=== PATIENT | male | born 1960 | race Caucasian/White ===

== ENCOUNTER → 2018-12-14 | Outpatient (CLI) | payer BC ==
--- NOTE | 2018-12-14 16:35 | Diagnostic Imaging Report ---
Clinical Indication:Left wrist pain Technique: 3 views of the left wrist Comparison: None Findings: No acute fractures. No dislocations. The joint spaces are preserved. Impression: Negative
== END | disposition home or self-care (01) ==
LOC: RAD 11:51
DX: M25.532 Pain in left wrist (principal); M25.332 Other instability, left wrist

== ENCOUNTER → 2019-10-18 | Outpatient (CLI) | payer BC ==
--- NOTE | 2019-10-18 12:46 | Diagnostic Imaging Report ---
Indication: Cough Technique: PA and lateral views of the chest Comparison: 07/28/2010 Findings: Heart size and mediastinal contours within normal limits and stable compared to the prior exam. There is no focal airspace consolidation. No silhouetting the heart borders or diaphragms. No pleural effusion, pneumothorax or radiographic evidence to suggest pulmonary edema. There are mild degenerative changes in the spine. No acute osseous abnormality. IMPRESSION: No radiographic evidence of acute cardiopulmonary disease. Specifically, no focal airspace opacity as questioned clinically.
== END | disposition home or self-care (01) ==
LOC: RAD 12:07
DX: R05 Cough (principal)
CPT/HCPCS: 71046